=== PATIENT | male | born 1970 | race Caucasian/White ===

== ENCOUNTER → 2019-04-11 08:56 | Outpatient (CLI) | payer OTHER, SELFPAY ==
--- NOTE | 2019-04-11 09:05 | RAD_ITS ---
STUDY: AIR CONTRAST UPPER GI SERIES REASON FOR EXAM: Male, 48 years old. Dysphasia. FLUOROSCOPY TIME (if supplied): (1:22) minutes/seconds TECHNIQUE: SINGLE CONTRAST AND AIR CONTRAST FLUOROSCOPIC IMAGES. COMPARISON: None. FINDINGS: The cervical esophagus demonstrates normal motility without aspiration. There is no stricture or extrinsic mass effect. No intraluminal polypoid mass is identified. The thoracic esophagus distends well without stricture or mucosal fold thickening. No mucosal ulcerations are identified. There is no extrinsic mass effect. There are no diverticula. No hiatal hernia or gastroesophageal reflux was identified. The patient was unable to swallow a 12 mm tablet of barium. The stomach distends well without mucosal fold thickening or mucosal ulceration. There is no intraluminal mass. The duodenal bulb is freely distensible without deformity or ulceration. The duodenal sweep is normal in position and caliber. RAD/Upper GI w/BA Swallow IMPRESSION: Normal air-contrast upper GI series. Electronically Signed: Holden Peoples, at 8:30 EDT , Service support ,
== END ==
PROVIDERS: Referring Provider Surgery; Visit Provider Surgery
DX: R13.10 Dysphagia, unspecified (principal)
CPT/HCPCS: 74246

== ENCOUNTER → 2023-02-14 | Outpatient (CLI) | payer OTHER, SELFPAY ==
[2023-02-14 15:42] LABS: CRP < 2.90 mg/L (0.0-3.0)
[2023-02-14 16:06] LABS: HIV - WCH Non-Reactive (Nonreactive); Hepatitis C Antibody Non-Reactive (Nonreactive)
[2023-02-16 17:07] LABS: Endomysial Antibody IgA Positive (Negative); Immunoglobulin A 508 mg/dL (90-386); t-Transglutaminase IgA >100 U/mL (0-3)
== END | disposition home or self-care (01) ==
PROVIDERS: PCP Family Medicine; Referring Provider Internal Medicine Gastroenterology; Visit Provider Internal Medicine Gastroenterology
DX: K90.0 Celiac disease (principal); D66 Hereditary factor VIII deficiency
CPT/HCPCS: 36415; 82784; 83516; 86140; 86255; 86703; 86803

== ENCOUNTER → 2023-03-01 | Outpatient (CLI) | payer OTHER, SELFPAY ==
--- NOTE | 2023-03-01 07:58 | RAD_ITS ---
STUDY: X-RAY - ESOPHAGUS (BARIUM SWALLOW) WITH FLUOROSCOPY REASON FOR EXAM: Male, 52 years old. DYSPHAGIA -- -- 53 sec fluoro, 13.13 mgy, 3 series TECHNIQUE: 20 view(s) of the esophagus were obtained following swallowing of barium. FLUOROSCOPY TIME (if supplied): (53 seconds) minutes/seconds COMPARISON: None. FINDINGS: There is no demonstrated esophageal foreign body. There is no demonstrated stricture or mucosal abnormality. Normal gastroesophageal junction, without a demonstrated hiatal hernia. The patient was unable to ingest a 12 mm tablet of barium. Normal visualized aortic arch and descending thoracic aorta. Normal visualized pulmonary parenchyma. Normal visualized osseous structures of the thorax. RAD/Esophagus Dual Contrast IMPRESSION: Normal plain film x-ray examination (barium swallow) of the esophagus. Electronically Signed: Holden Peoples MD at 13:42 EDT ,
== END | disposition home or self-care (01) ==
LOC: RAD 07:51
PROVIDERS: PCP Family Medicine; Referring Provider Internal Medicine Gastroenterology; Visit Provider Internal Medicine Gastroenterology
DX: R13.10 Dysphagia, unspecified (principal)
CPT/HCPCS: 74221

== ENCOUNTER → 2023-05-22 | Outpatient (CLI) | payer OTHER, SELFPAY ==
[2023-05-22 15:43] LABS: Fibrinogen 332 mg/dl (203-444); Partial Thromboplast Time 33.2 Seconds (24.1-36.2)
[2023-05-22 15:44] LABS: International Normalized Ratio 1.3; Prothrombin Time (Protime)PT. 16.2 SECONDS (11.7-14.9)
[2023-05-26 08:12] LABS: Factor VIII Activity 130 % (56-140); VWD Studies Interp Report Note (.); von Willebrand Factor (vWF) Ag 149 % (50-200); von Willebrand Factor Activity 128 % (50-200)
== END | disposition home or self-care (01) ==
LOC: LAB 15:09
PROVIDERS: PCP Family Medicine
DX: D69.9 Hemorrhagic condition, unspecified (principal)
CPT/HCPCS: 36415; 85240; 85245; 85246; 85384; 85610; 85730